=== PATIENT | male | born 1995 | race Caucasian/White ===

== ENCOUNTER 2023-02-28 01:18 | Day surgery (SDC) | payer BC, SELFPAY ==
[2022-12-15 15:51] VITALS: BMI 28.5
[2023-02-14 10:45] VITALS: BMI 28.5
--- NOTE | 2023-02-24 14:43 | SUR.PREOP ---
Patient called regarding upcoming procedure. No answer- message left for phone number to call if questions.
[2023-02-28 11:40] VITALS: BP 114/81; PULSE 68; RESP 16; TEMP 36.2; O2SAT 100; BMI 28.5
[2023-02-28] MEDS: LACTATED RINGERS 1,000 ML 150 ML IV CONT (11:48)
--- NOTE | 2023-02-28 12:23 | WPDANESEPPF ---
Anes - Initial Pre Proc Eval Procedure: Operation Date: 02/28/23 13:00 Proposed Procedures p Esophagogastroduodenoscopy - Ralf Rodriguez MD Date/Time: 02/28/23 12:23 Surgeon: Ralf Rodriguez MD Pre Op Diagnosis: GERD without esophagitis Patient Data Age: 27 Gender: M Height: 1.8 m Weight: 92.8 kg Last Vital Signs Temp 97.2 F L 02/28/23 11:40 Pulse 68 02/28/23 11:40 Resp 16 02/28/23 11:40 BP 114/81 02/28/23 11:40 Pulse Ox 100 02/28/23 11:40 O2 Del Method Room Air 02/28/23 11:40 Allergies Allergy/AdvReac Type Severity Reaction Status Date / Time No Known Allergies Allergy Verified 02/28/23 11:39 Home Medications Medication Instructions Recorded Confirmed Type omeprazole 40 mg capsule,delayed 40 mg PO DAILY #30 caps 02/07/23 02/28/23 Rx release Patient hx anesthesia problems: none Family hx anesthesia problems: none Results Review: All pre-operative results and documents have been reviewed as part of the pre-operative evaluation. [facility] Social History Social History Smoking status: Never smoker Tobacco type: smokeless tobacco Smokeless tobacco user: chewing tobacco Alcohol intake: current Substance use: never Substance use type: does not use Living arrangements: with family Occupation/Education: occupation Additional occupation/education comments: [employer] at [employer] Gender identity (if verbalized by the patient): Male Spiritual care concerns: No Anes - Eval Final PreProcedure Day of Procedure 02/28/23 12:23 Patient weight: normal Heart: regular rate and rhythm Lungs: clear to auscultation Airway: Mallampati scale class II Neurological: alert and oriented Last oral intake: >/= 8 hours ASA classification: II Emergent: no Anesthetic plan: proceed Anesthesia type and monitoring: general GIVS and standard monitoring Results Review: All pre-operative results and documents have been reviewed as part of the pre-operative evaluation. Informed Consent: The patient's anesthetic plan and its attendant risks and benefits were discussed with the patient/family/POA. Questions were solicited and answers provided to the satisfaction of the patient/family/POA.
--- NOTE | 2023-02-28 12:33 | PM.HPGS ---
History of Present Illness History of Present Illness Consent: Risks, benefits, and alternatives have been discussed and questions answered. Patient agrees to proceed with procedure. Chief complaint: GERD without esophagitis Narrative: Humberto Torres is a 27 year old male with gerd and burping, used omeprazole but did not like it how made him feel (not longer using it), never had egd Review of Systems Constitutional: Constitutional: Denies headache(s) and Denies weakness Eyes: Eyes: Denies blurry vision ENT: Reports Normal hearing present, Denies headache(s) and Denies neck pain Cardiovascular: Cardiovascular: Denies chest pain and Denies dyspnea Respiratory: Respiratory: Denies dyspnea Gastrointestinal: Gastrointestinal: Reports no additional gastrointestinal complaints Genitourinary: Genitourinary: Denies dysuria Musculoskeletal: Musculoskeletal: Denies neck pain Integumentary/Breasts: Skin/Breast: Denies dry skin Neurologic: Reports Normal hearing present, Denies headache(s) and Denies weakness Psychiatric: Psychiatric: Denies anxiety Endocrine: Endocrine: Denies change in body appearance Hematologic/Lymphatic: Hematologic/Lymphatic: Denies easy bleeding Allergic/Immunologic: Allergic/Immunologic: Denies urticaria PMFSH Past Medical History Medical History (Updated 02/28/23 @ 12:34 by Ralf Rodriguez MD) Functional burping disorder GERD (gastroesophageal reflux disease) Social History Social History Smoking status: Never smoker Tobacco type: smokeless tobacco Smokeless tobacco user: chewing tobacco Alcohol intake: current Substance use: never Substance use type: does not use Living arrangements: with family Occupation/Education: occupation Additional occupation/education comments: [employer] at [employer] Gender identity (if verbalized by the patient): Male Spiritual care concerns: No Meds Home Medications and Allergies Home Medications Medication Instructions Recorded Confirmed Type omeprazole 40 mg capsule,delayed 40 mg PO DAILY #30 caps 02/07/23 02/28/23 Rx release Allergies Allergy/AdvReac Type Severity Reaction Status Date / Time No Known Allergies Allergy Verified 02/28/23 11:39 Vital Signs Vital Signs - 24 hr 02/28/23 11:40 Temperature 97.2 F L Pulse Rate 68 Respiratory Rate 16 Blood Pressure 114/81 Pulse Oximetry 100 Oxygen Delivery Room Air Exam Const: General: comfortable and no acute distress HENMT: Face/Nose/Sinus: Normal nares present Eyes: General: appearance normal, both eyes and all related structures Neck: Neck: no JVD Resp: Auscultation: clear to auscultation bilaterally Cardio: Rate: regular rate Rhythm: regular rhythm GI: Inspection: non-distended GI Palp: Yes Soft to palpation Skin: General skin exam: normal color Neuro: General: gait normal Speech: normal speech Extrem: General: normal to inspection Psych: Mental Status: mental status grossly normal Assessment and Plan Assessment and plan (1) GERD (gastroesophageal reflux disease): Code(s): K21.9 - Gastro-esophageal reflux disease without esophagitis Status: Acute Assessment and Plan: egd with bx (2) Functional burping disorder: Code(s): R14.2 - Eructation Status: Acute
[2023-02-28 12:49] VITALS: BP 112/68; PULSE 78; RESP 20; O2SAT 97
[2023-02-28 12:59] VITALS: BP 110/76; PULSE 64; RESP 18; O2SAT 99
[2023-02-28 13:09] VITALS: BP 122/79; PULSE 62; RESP 18; O2SAT 100
== END 2023-02-28 13:16 | disposition home or self-care (01) ==
PROVIDERS: Visit Provider Internal Medicine Gastroenterology
PROC: 0DJ08ZZ Inspection of Upper Intestinal Tract, Via Natural or Artificial Opening Endoscopic (ICD-10-PCS; CPT 43235; principal; 2023-02-28 13:00)
DX: K21.9 Gastro-esophageal reflux disease without esophagitis (principal); R14.2 Eructation; F17.220 Nicotine dependence, chewing tobacco, uncomplicated
CPT/HCPCS: 43239; 88305; J2001; J2704; J7120

== ENCOUNTER 2023-03-29 08:33 | Outpatient (CLI) | payer BC, SELFPAY ==
--- NOTE | 2023-03-29 08:50 | ECHO_ITS ---
Patient Info Name: Humberto Torres Age: 27 years : 1995 Gender: Male Ht: 71 in Wt: 205 lbs BSA: 2.18 m2 HR: 71 bpm BP: 114 / 81 mmHg Technical Quality: Good Exam Date: 03/29/2023 8:57 AM Exam Location: Echo Lab Patient Status: Outpatient Admit Date: 03/29/2023 Staff Ordering Physician: Jolynn Saxena Attending Provider: Jolynn Saxena Referring Physician: Odessa PEDRAZA; Exam Type: CA echo doppler color flow Study Info Indications R01.1 - Cardiac murmur, unspecified Complete two-dimensional, color flow and Doppler transthoracic echocardiogram is performed. Summary 1. Complete two-dimensional, color flow and Doppler transthoracic echocardiogram is performed. 2. Left ventricular chamber dimension is moderately enlarged. 3. Left ventricular systolic function is normal, estimated at 55-60%. 4. The left ventricular diastolic function is normal. 5. E/e' 5 is not elevated. 6. Left atrial chamber dimension is moderately enlarged. 7. There is trace mitral valve regurgitation. 8. There is trace tricuspid valve regurgitation. 9. No pulmonary hypertension, estimated pulmonary arterial systolic pressure is 21 mmHg. 10. There is trace pulmonic regurgitation. Left Ventricle E/e' 5 is not elevated. Left ventricular chamber dimension is moderately enlarged. Left ventricular systolic function is normal, estimated at 55-60%. The left ventricular diastolic function is normal. Right Ventricle Right ventricular systolic function is normal and with normal TAPSE 2.7 cm. Right ventricular chamber dimension is normal. Left Atria Left atrial chamber dimension is moderately enlarged. Right Atria Right atrial chamber dimension is normal. Aortic Valve The aortic valve is trileaflet. There is no aortic valve stenosis. There is no aortic valve regurgitation. Pulmonic Valve There is trace pulmonic regurgitation. Mitral Valve There is no mitral valve stenosis. There is trace mitral valve regurgitation. Tricuspid Valve There is trace tricuspid valve regurgitation. No pulmonary hypertension, estimated pulmonary arterial systolic pressure is 21 mmHg. Pericardium/Pleural There is no pericardial effusion. Inferior Vena Cava Normal inferior vena cava with >50% collapse upon inspiration consistent with normal right atrial pressure, 5 mmHg. Aorta The aortic root size at the sinus of Valsalva is normal. Left Ventricular Outflow Tract Name Value Normal LVOT 2D LVOT Diameter 2.1 cm LVOT Doppler LVOT Peak Gradient 4 mmHg LVOT Mean Gradient 2 mmHg LVOT VTI 21 cm LVOT VTI/AV VTI Ratio 0.6 LVOT Stroke Volume 72 ml LVOT CO 4.7 l/min LVOT CI 2.1 l/min/m2 Pulmonic Valve Name Value Normal PV Doppler PV Peak Gradient
== END 2023-03-29 08:34 | disposition home or self-care (01) ==
LOC: ANHCARD 08:34
PROVIDERS: PCP Nurse Practitioner Family; Visit Provider Nurse Practitioner Family
DX: R01.1 Cardiac murmur, unspecified (principal)
CPT/HCPCS: 93306

== ENCOUNTER 2023-08-09 11:21 | Outpatient (CLI) | payer BC, SELFPAY ==
[2023-08-09 11:47] LABS: Basophils Percent Auto 0.6 % (0.2-1.2); Eosinophils Absolute Auto 0.2 K/mm3 (0-0.3); Eosinophils Percent Auto 2.6 % (0-4.4); Hemoglobin 16.1 g/dL (14.0-18.0); Immature Granulocyte Absolute 0.04 K/mm3 (0.00-0.031); Immature Granulocyte Percent A 0.6 % (0-0.5); Lymphocytes Absolute Auto 1.56 K/mm3 (0.9-3.2); Lymphocytes Percent Auto 23.9 % (18.3-44.2); Mean Corpuscular HGB Conc 35.8 g/dl (32-36); Mean Corpuscular Hemoglobin 29.3 pg (26-34); Mean Corpuscular Volume 81.8 fl (80-100); Mean Platelet Volume 10.2 fl (7.4-10.4); Monocytes Absolute Auto 0.6 K/mm3 (0.1-0.6); Monocytes Percent Auto 8.4 % (2.6-8.5); Neutrophils Absolute Auto 4.2 K/mm3 (1.3-6.7); Neutrophils Percent Auto 63.9 % (45.5-73.1); Platelet Count Result 125 k/mm3 (150-375); Red Cell Distribution Width 11.9 % (11.5-14.5); White Blood Count 6.5 K/mm3 (4.5-10.0)
[2023-08-09 16:42] LABS: Iron 102 ug/dL (49-181)
[2023-08-09 16:50] LABS: Alanine Aminotransferase 19 U/L (6-50); Albumin Level 4.7 g/dL (3.5-5.1); Alkaline Phosphatase 55 U/L (38-126); Anion Gap 7 mmol/L (4-12); Aspartate Amino Transferase 23 U/L (17-59); Bilirubin,Total 0.7 mg/dL (0.2-1.3); Blood Urea Nitrogen 13 mg/dL (9-20); Calcium 9.5 mg/dL (8.4-10.2); Carbon Dioxide 27 mmol/L (22-30); Chloride 105 mmol/L (98-107); Estimated Glomerular Filt Rate > 60; Glucose 97 mg/dL (65-110); Potassium 3.9 mmol/L (3.4-5.0); Sodium 139 mmol/L (137-145)
[2023-08-09 16:59] LABS: Percent Iron Saturation 33 % (20-50)
[2023-08-09 17:58] LABS: Folic Acid 7.1 ng/mL (2.76->20)
[2023-08-15 20:18] LABS: Platelet Antibody, Direct NEGATIVE (NEGATIVE)
[2023-08-16 09:29] LABS: Soluble Transferrin Receptor 1.21 mg/L (0.76-1.76)
[2023-08-16 16:39] LABS: Methylmalonic Acid 355 nmol/L (87-318)
== END 2023-08-09 11:22 | disposition home or self-care (01) ==
LOC: ANHLAB 11:23
PROVIDERS: PCP Nurse Practitioner Family; Visit Provider Internal Medicine Hematology & Oncology
DX: D64.9 Anemia, unspecified (principal); D69.59 Other secondary thrombocytopenia
CPT/HCPCS: 36415; 80053; 82607; 82728; 82746; 83540; 83550; 83921; 84238; 85025; 85055; 86023

== ENCOUNTER 2023-08-23 08:34 | Outpatient (CLI) | payer BC, SELFPAY ==
--- NOTE | ~2023-08-23 | US_ITS ---
Abdominal Sonogram: Real-time sonographic imaging of the abdomen was performed. Clinical History: Secondary thrombocytopenia Findings: The liver appears normal with no evidence of mass lesion or bile duct dilatation. Main por madiha vein demonstrates normal direction of flow. The spleen is enlarged, measuring 14.1 cm in length. The gallbladder is well distended, and appears normal with no evidence of gallstone. There are proba ble tiny gallbladder wall polyps or cholesterolosis. The common bile duct measures 4 mm. The visuali zed pancreas, aorta, and IVC are unremarkable. The right kidney measures 10.6 cm in length and the l eft kidney measures 12.2 cm. There is no hydronephrosis or renal calculus. Impression: Splenomegaly, as detailed above. Probable tiny gallbladder wall polyps or focal cholesterolosis. Reviewed, dictated and finalized at [facility]. Impression: Splenomegaly, as detailed above. Probable tiny gallbladder wall polyps or focal cholesterolosis.
== END 2023-08-23 08:35 | disposition home or self-care (01) ==
PROVIDERS: PCP Nurse Practitioner Family; Visit Provider Internal Medicine Hematology & Oncology
DX: D69.59 Other secondary thrombocytopenia (principal); R16.1 Splenomegaly, not elsewhere classified
CPT/HCPCS: 76700

== ENCOUNTER 2023-09-01 09:08 | Outpatient (CLI) | payer BC, SELFPAY ==
[2023-09-09 15:53] LABS: Intrinsic Factor Blocking Ab NEGATIVE
== END 2023-09-01 09:09 | disposition home or self-care (01) ==
LOC: ANHLAB 09:12
PROVIDERS: PCP Nurse Practitioner Family; Visit Provider Internal Medicine Hematology & Oncology
DX: E53.8 Deficiency of other specified B group vitamins (principal)
CPT/HCPCS: 36415; 86340; 86364

== ENCOUNTER 2023-11-27 15:55 | Outpatient (CLI) | payer BC, SELFPAY ==
[2023-11-27 16:10] LABS: Basophils Absolute Auto 0.1 K/mm3 (0.0-0.1); Basophils Percent Auto 0.9 % (0.2-1.2); Eosinophils Absolute Auto 0.2 K/mm3 (0-0.3); Eosinophils Percent Auto 2.8 % (0-4.4); Hematocrit 42.2 % (42.0-52.0); Hemoglobin 14.7 g/dL (14.0-18.0); Immature Granulocyte Absolute 0.03 K/mm3 (0.00-0.031); Immature Granulocyte Percent A 0.4 % (0-0.5); Lymphocytes Absolute Auto 1.83 K/mm3 (0.9-3.2); Lymphocytes Percent Auto 24.2 % (18.3-44.2); Mean Corpuscular HGB Conc 34.8 g/dl (32-36); Mean Corpuscular Hemoglobin 28.7 pg (26-34); Mean Corpuscular Volume 82.4 fl (80-100); Mean Platelet Volume 10.1 fl (7.4-10.4); Monocytes Absolute Auto 0.8 K/mm3 (0.1-0.6); Monocytes Percent Auto 10.2 % (2.6-8.5); Neutrophils Absolute Auto 4.7 K/mm3 (1.3-6.7); Neutrophils Percent Auto 61.5 % (45.5-73.1); Platelet Count Result 127 k/mm3 (150-375); Red Blood Count 5.12 M/mm3 (4.6-6.20); Red Cell Distribution Width 12.1 % (11.5-14.5); White Blood Count 7.6 K/mm3 (4.5-10.0)
[2023-11-27 16:46] LABS: Iron 99 ug/dL (49-181)
[2023-11-27 16:55] LABS: Percent Iron Saturation 34 % (20-50)
[2023-11-27 18:27] LABS: Alanine Aminotransferase 18 U/L (6-50); Albumin Level 4.4 g/dL (3.5-5.1); Alkaline Phosphatase 53 U/L (38-126); Anion Gap 8 mmol/L (4-12); Aspartate Amino Transferase 24 U/L (17-59); Bilirubin,Total 0.5 mg/dL (0.2-1.3); Blood Urea Nitrogen 12 mg/dL (9-20); Calcium 9.2 mg/dL (8.4-10.2); Carbon Dioxide 30 mmol/L (22-30); Chloride 101 mmol/L (98-107); Estimated Glomerular Filt Rate > 60; Glucose 76 mg/dL (65-110); Sodium 139 mmol/L (137-145)
[2023-11-27 19:48] LABS: Folic Acid 4.4 ng/mL (2.76->20)
== END 2023-11-27 15:56 | disposition home or self-care (01) ==
LOC: ANHLAB 15:58
PROVIDERS: PCP Family Medicine; Visit Provider Internal Medicine Hematology & Oncology
DX: D64.9 Anemia, unspecified (principal); E53.8 Deficiency of other specified B group vitamins
CPT/HCPCS: 36415; 80053; 82607; 82728; 82746; 83540; 83550; 85025; 85055

== ENCOUNTER 2025-04-09 09:50 | Outpatient (CLI) | payer BC, SELFPAY ==
--- OUTSIDE RECORDS SUMMARY | 2025-04-09 09:59 | XMS_ITS | Clinical Summary ---
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 Active Syringe with Needle, Disp, 1 mL 27 x 1/2 Syringe Use with B12 injections 6 Each 4 Active cyanocobalamin (VITAMIN B-12) 1,000 mcg/mL Solution INJECT 1 ML (1,000 MCG) BY INTRAMUSCULAR EVERY 14 DAYS. 6 mL 5 Active Active Problems No known active problems Family History Medical History Relation Name Comments Thyroid Cancer Mother Relation Name Status Comments Brother 1 Alive Brother 2 Alive Father Alive Mother Alive Social History Tobacco Use Types Packs/Day Years Used Date Smoking Tobacco: Never Smokeless Tobacco: Never Tobacco Cessation:Counseling Given: Not Answered Alcohol Use Standard Drinks/Week Comments Yes 0 (1 standard drink = 0.6 oz pur e alcohol) occasional Sex and Gender Information Value Date Recorded Sex Assigned at Not on file Legal Sex Male 1:05 PM [employer]LE [employer] Gender Identity Not on file Sexual Orientation Not on file Last Filed Vital Signs Vital Sign Reading Time Taken Comments Blood Pressure 125/80 12/04/2023 2:07 PM CDT Pulse 84 12/04/2023 2:07 PM CDT Temperature 36.9 C (98.4 F) 12/04/2023 2:07 PM CDT Respiratory Rate 16 12/04/2023 2:07 PM CDT Oxygen Saturation 97% 12/04/2023 2:07 PM CDT Inhaled Oxygen Concentration - - Weight 86.2 kg (190 lb) 12/04/2023 2:07 PM CDT Height 180.3 cm (5' 11) 08/09/2023 10:33 AM CDT Body Mass Index 26.5 08/09/2023 10:33 AM CDT Plan of Treatment Upcoming Encounters Date Type Department Care Team (Late st Contact Info) Description 04/15/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
[2025-04-09 10:24] LABS: Hematocrit 44.6 % (42.0-52.0); Hemoglobin 15.7 g/dL (14.0-18.0); Immature Granulocyte Percent A 0.8 % (0-0.5); Immature Platelet Fraction Pct 4.2 % (0.9-11.2); Lymphocytes Absolute Auto 1.64 K/mm3 (0.9-3.2); Mean Corpuscular HGB Conc 35.2 g/dl (32-36); Mean Corpuscular Hemoglobin 28.6 pg (26-34); Mean Corpuscular Volume 81.4 fl (80-100); Nucleated Red Blood Cells Absolute Auto 0.000 K/mm3 (0.0-0.012); Nucleated Red Blood Cells Perc 0.0 % (0.0-0.2); Platelet Count Result 120 k/mm3 (150-375); Red Blood Count 5.48 M/mm3 (4.6-6.20); White Blood Count 6.5 K/mm3 (4.5-10.0)
[2025-04-09 12:55] LABS: Alanine Aminotransferase 17 U/L (6-50); Albumin Level 4.6 g/dL (3.5-5.1); Alkaline Phosphatase 56 U/L (38-126); Anion Gap 7 mmol/L (4-12); Aspartate Amino Transferase 42 U/L (17-59); Bilirubin,Total 0.8 mg/dL (0.2-1.3); Blood Urea Nitrogen 12 mg/dL (9-20); Calcium 9.9 mg/dL (8.4-10.2); Carbon Dioxide 30 mmol/L (22-30); Chloride 103 mmol/L (98-107); Estimated Glomerular Filt Rate > 60; Glucose 70 mg/dL (65-110); Potassium 4.2 mmol/L (3.4-5.0); Sodium 140 mmol/L (137-145); Total Protein 7.3 g/dL (6.3-8.2)
[2025-04-09 13:02] LABS: Iron 85 ug/dL (49-181)
[2025-04-09 13:42] LABS: Percent Iron Saturation 29 % (20-50)
[2025-04-09 14:15] LABS: Ferritin 89.20 ng/mL (17.9-464)
[2025-04-09 18:10] LABS: Vitamin B12 294.0 pg/mL (239-931)
== END 2025-04-09 09:51 | disposition home or self-care (01) ==
LOC: ANHLAB 09:51
PROVIDERS: Visit Provider Internal Medicine Hematology & Oncology
DX: D64.9 Anemia, unspecified (principal)
CPT/HCPCS: 36415; 80053; 82607; 82728; 82746; 83540; 83550; 85025; 85055